=== PATIENT | male | born 1940 | race Caucasian/White ===

== ENCOUNTER → 2019-02-13 08:45 | Outpatient (CLI) | payer MEDICARE, OTHER ==
[2015-03-18 11:52] VITALS: BMI 27.3
[~2019-02-13 08:45] MED LIST: CARDIZEM CD180 MG PO; CARTIA XT120 MG PO; DOXYCYCLINE HY100 M2 PO; ELIQUIS5 MG PO; XARELTO15 MG PO
--- NOTE | 2019-02-17 10:44 | ST ---
PATIENT:CARLO ROLAND MEDICAL RECORD: [id number] SEX: M LOCATION:[facility] ORDER #: ADMISSION DATE: 02/13/19 AGE OF PATIENT: 78 REFERRING PHYSICIAN: INTERPRETING PHYSICIAN: LOGAN FERRO MD DATE OF SERVICE: 02/13/2019 PROCEDURE: Nuclear stress test. INDICATION: Angina, valvular heart disease, aortic insufficiency, hypertension and hyperlipidemia. TECHNIQUE: He was exercised on standard Soren protocol for 8 minutes achieving 85% max target heart rate response with 33 mCi of sestamibi injected at peak stress, 11 mCi used previously for rest images. FINDINGS: Gated SPECT reveals preserved ejection fraction at 56% with good wall motion and thickening and brightening throughout all segments. SPECT imaging Cardiolite was used as myocardial fusion agent. There is homogeneous uptake throughout all segments at rest and stress with no evidence of inducible ischemia or previous infarction. OVERALL IMPRESSION: 1. This is a normal nuclear stress test with no evidence of inducible ischemia or previous infarction. 2. Gated SPECT reveals a preserved ejection fraction at 56%. In this patient with ongoing symptomatology, the current scan does not suggest the presence of hemodynamically significant coronary artery disease. Evaluate noncardiac etiology of chest pain. TRANSINT:[id number] Voice Confirmation ID: [id number] DOCUMENT ID: [id number] LOGAN FERRO MD at 1044 CC: [id number] DICTATION DATE: 02/14/19 1451 CAUSTIC ROOM OPERATOR: 02/15/19 0749 [facility] CLI 02/13/19 [place] [id number]
--- NOTE | 2019-02-19 13:38 | EC ---
PATIENT:CARLO ROLAND DATE OF SERVICE: 02/13/19 SEX: M MEDICAL RECORD: [id number] DATE OF : 40 LOCATION:[facility] AGE OF PATIENT: 78 ADMISSION DATE: 02/13/19 REFERRING PHYSICIAN: INTERPRETING PHYSICIAN: RIA MICHEL MD ECHOCARDIOGRAM REPORT ECHO CHARGES 4 ECHO COMPLETE Date: 02/13/19 CLINICAL DIAGNOSIS: AI/ANGINA/DYSPNEA/LVH H/O HTN ECHOCARDIOGRAPHIC MEASUREMENTS (adult normal given) AC root (d.<3.7cm) 4.2 cm LV Septum d (<1.2 cm> 1.2 cm Valve Excursion 2.4 cm LV Septum (systole) 1.7 cm Left Atria (s.<4.0cm> 3.7 cm LVPW d(<1.2cm) 1.1 cm RV (d.<2.3cm) 2.6 cm LVPW (sytole) 1.8 cm LV diastole(<5.6CM) 6.2 cm MV E-F(>70mm/sec) cm LV systole 4.0 cm LVOT Diameter 2.0 cm MV exc.(>10mm) cm Est.ejection fraction (50-75%) % DOPPLER: LVIT cm/sec A 93.0 cm/sec E 64.0 cm/sec LA cm/sec RVSP 17.2 mmHg LVOT 90.0 cm/sec AOP1/2T 788.0m/s Asc. Ao 131 cm/sec RVOT 55.0 cm/sec RA cm/sec PA 82.0 cm/sec AV Gradient Peak 6.9 mmHg AV Mean 3.6 mmHg AV Area 2.2 cm MV Gradient Peak 3.6 mmHg MV Mean 1.3 mmHg MV Area cm COMMENTS: OP - HC Tanker Driver: 1 JANEE WHALEYOE Monotype Caster: 3 Dr. Dozier TAPE# PACS Pericardial Effusion N DATE OF SERVICE: Adequate 2D, color-flow, spectral Doppler, and M-mode. No LVH. LV internal dimension is normal. Wall motion is normal. EF is greater than or equal to 55%. Aortic valve is tricuspid. No evidence of stenosis by Doppler interrogation. [id number] AI by color flow imaging. Left atrium is normal at 3.7 cm. Mitral valve shows no prolapse. Mild MR. Right-sided chambers are grossly normal. Trace TR. TRANSINT:[id number] Voice Confirmation ID: [id number] DOCUMENT ID: [id number] ECHOCARDIOGRAM REPORT [id number] CARLO ROLAND,RIA Martinez MD at 1338 CC: [id number] DICTATION DATE: 02/17/19 1239 BOLOGNA LACER: 02/17/19 1302 [facility] CLI 02/13/[address] [id number]
== END | disposition home or self-care (01) ==
LOC: D.HCCECHO 08:45
PROVIDERS: ATTEND Internal Medicine Interventional Cardiology
DX: R01.1 Cardiac murmur, unspecified (principal); I48.91 Unspecified atrial fibrillation